=== PATIENT | female | born 1990 | race Caucasian/White ===

== ENCOUNTER 2018-10-30 12:38 | Emergency (ER) | payer SELFPAY ==
[~2018-10-30] VITALS: Ht 170.2 cm; Wt 90.3 kg
[2018-10-30 12:42] VITALS: BP 129/74
--- NOTE | 2018-10-30 12:46 | NUR ---
PT TAKEN TO BED 5.
[2018-10-30] MEDS ORDERED: KETOROLAC 60 MG/2 ML VIAL IM ONE (13:50)
--- NOTE | 2018-10-30 14:15 | NUR ---
C/O RT FOOT PAIN X 7 DAYS. PT DENIES TRUAMA OR INJURY. CONSTANT PRESSURE PAIN ON DORSAL SURFACE OF RT FOOT THAT RADIATES UP TO VITALE AT 5/10 AND INCREASES WITH WALKING. TX W/ TIGER BALM AND ICE W/ NO RELIEF. + SWELLING MEDHX:DENIES RX:DENIES
[2018-10-30 14:25] VITALS: BP 129/74
== END 2018-10-30 14:25 | disposition home or self-care (01) ==
LOC: MED 12:38
DX: S93.601A Unspecified sprain of right foot, initial encounter (principal); X58.XXXA Exposure to other specified factors, initial encounter; Y93.89 Activity, other specified; Y92.89 Other specified places as the place of occurrence of the external cause; Y99.8 Other external cause status
CPT/HCPCS: 73630; 96372; 99283; J1885; Q0092